=== PATIENT | female | born 1995 | race Caucasian/White ===

== ENCOUNTER → 2016-11-16 | Outpatient (CLI) | payer OTHER ==
[2016-11-16 11:28] LABS: PREG INTERNAL NEGATIVE QC NEG CLEAR BACKGROUND; PREG INTERNAL POSITIVE QC POS CONTROL LINE
== END | disposition home or self-care (01) ==
LOC: C.LAB1850 10:24
PROVIDERS: ATTEND Physician Assistant
DX: N92.6 Irregular menstruation, unspecified (principal)

== ENCOUNTER → 2017-04-02 | Outpatient (CLI) | payer OTHER | END | disposition home or self-care (01) | LOC: C.PAPS 13:16 | PROVIDERS: ATTEND Physician Assistant | DX: Z01.419 Encounter for gynecological examination (general) (routine) without abnormal findings (principal) ==

== ENCOUNTER 2023-04-16 03:09 | Inpatient (IN) ==
[2023-04-16] MEDS ORDERED: LIDOCAINE 1% LOCAL 20 ML VIAL INFIL PRN (06:14)
[2023-04-16] MEDS ORDERED: OXYTOCIN 30 UNITS/NSS 30 UNITS/500 ML BAG IV PRN ×3 (06:14→14:05)
--- NOTE | 2023-04-16 06:17 | History & Physical Report ---
Date of Service April 16, 2023 Assessment & Plan (1) COVID-19 affecting in third trimester: (2) with 39 completed weeks gestation: (3) Normal labor: Plan admit. fetus category one. COVID precautions. epidural on demand. pit if indicated. anticipate . History of Present Illness Chief Complaint: increasing contractions Primary Care Provider: NO PCP Ptient is a 27yowf with iup at 39 5/7 weeks who presents with increasing contractions. she presented yesterday with viral illness diagnosed as COVID. She was tanya every 2-3 minutes at that point but not really feeling, monitored and did not change her cervix. She was d/c. Called early am with contractions every 4 minutes and painful. Was 3 and then changed to 4cm so admitted. The has been uncomplicated until recent diagnosis of covid yesterday. Sx started Sat night including body aches, fatigue, low grade fever, slight congestion. OB Labs: Blood Type O Positive 09/07/22 Antibody Screen NEGATIVE 09/07/22 Hemoglobin 12.8 g/dl (12.0-16.0) 01/25/23 Hematocrit 37.3 % (37.0-47.0) 01/25/23 Mean Corpuscular Volume 91.5 fL (80.0-100.0) 09/07/22 Platelet Count 332 K/uL (130-400) 09/07/22 Rubella IgG Antibody Immune (Immune) 09/07/22 Rapid Plasma Reagin Nonreactive (Nonreactive) 09/07/22 Hepatitis B Surface Antigen. NON-REACTIVE (NON-REACTIVE) 09/07/22 Hepatitis C Antibody (EIA) NON-REACTIVE (NON-REACTIVE) 09/07/22 HIV (1&2) Ag and Ab Confirmation NON-REACTIVE (NON-REACTIVE) 09/07/22 Glucose 1 Hour 50 gm Load 75 mg/dl (70-130) 01/25/23 OB Optional Labs: Chlamydia trachomatis RNA Not Detected (NotDetected) 09/07/22 Neisseria gonorrhoeae RNA Not Detected (NotDetected) 09/07/22 Labs Reviewed: declines genetic testing--[facility] declines QS/afp--[facility] declines Horizon--[facility] Allergies Allergy/AdvReac Type Severity Reaction Status Date / Time No Known Allergies Allergy Verified 04/12/23 09:00 Home Medications Medication Instructions Recorded Confirmed Type vit no.95-ferrous 1 tab PO DAILY #30 tabs 08/11/22 04/16/23 Rx fumarate 28 mg-folic acid 800 mcg tablet Patient History Medical History with 39 completed weeks gestation History of chicken pox Surgical History No pertinent past surgical history Family History Aunt Breast cancer Denies family history of Ovarian cancer Colorectal cancer Social History Smoking Status: Never smoker Second Hand Exposure: No; Do You Dip or Chew Tobacco: No; Hx Alcohol Use: No Hx Substance Use: No Preferred Language: Maltese Communication Ability: Effective Wireless Development Manager Required: No Beliefs That Will Affect Care: None marital status: marital status details: Dallas Rogers (30) [phone] Current Living Situation: Spouse and Family Current Living Situation Comment: lives with spouse, 2 sons, dog, cat-spouse changing litter current occupational status: unemployed current occupation: homemaker Other Information That Helps Us Care for You: No Feels Safe at Home: Yes Safety Concerns: Feels Safe At This Time Diet: regular Assistive Devices: None OB History Past Pregnancies Del. Date GA wks Lbr Lgth wt Sex Type del Anes Place Del Prov ? Comment 03/21/19 40 20 8-9 M Epidu ral Other JASON Callahan induced LGA, 4th degree tear 04/30/20 40 3 9 M Epidura l Other JASON Carbajal [employer] History noncontributory Physical Exam Constitutional: WD/WN, vitals as above Gastrointestinal (Abdomen): soft, gravid, nt Psychiatric: A+Ox3, euthymic affect Genitourinary: cx--/-2 per nursing toco--q3-5min efm--130s with mod variability, accels to 160s, no decels Results & Data Vital Signs (Past 12 Hours) Vital Signs Temp Pulse Resp BP 04/16/23 03:32 106 H 128/81 04/16/23 03:25 37.0 C 18 Coding Level of Care Code None Diagnoses COVID-19 affecting in third trimester O98.513; U07.1 with 39 completed weeks gestation Z3A.39 Normal labor O80; Z37.9
[2023-04-16 07:06] LABS: Hematocrit (blood only) 41.7 % (37.0-47.0); Hemoglobin 14.1 g/dl (12.0-16.0); Mean Corpuscular Hemoglobin 30.9 pg (25.0-34.0); Mean Corpuscular Hgb Conc 33.8 g/dL (32.0-36.0); Mean Corpuscular Volume 91.2 fL (80.0-100.0); Mean Platelet Volume 11.4 fL (9.4-12.4); Platelet Count 214 K/uL (130-400); RDW Coefficient of Variation 13.7 % (11.5-14.5); RDW Standard Deviation 45.9 fL (36.4-46.3); Red Blood Count 4.57 M/uL (4.20-5.40); White Blood Count 9.01 K/ul (4.8-10.8)
[2023-04-16] MEDS: LACTATED RINGER'S 1,000 ML IV PRN ×3 (07:20→11:53)
[2023-04-16] MEDS ORDERED: ROPIVACAINE 0.5% PF 5 MG/ML 20 ML VIAL EPI PRN (07:26)
[2023-04-16] MEDS ORDERED: NALOXONE HCL 1 MG in SODIUM CHLORIDE 0.9% 1,000 ML IV PRN (07:26)
[2023-04-16] MEDS ORDERED: SODIUM CHLORIDE 0.9% PF INJ 10 ML VIAL EPI PRN (07:26)
[2023-04-16] MEDS ORDERED: NALBUPHINE HCL 5 MG in SYRINGE 0 ML IV PRN (07:26)
[2023-04-16] MEDS ORDERED: LIDOCAINE 2% MPF LOCAL 5 ML VIAL EPI PRN (07:26)
[2023-04-16] MEDS ORDERED: BUPIVACAINE 0.25% PF 30 ML VIAL EPI PRN (07:26)
[2023-04-16] MEDS ORDERED: fentaNYL citrate PF 100 MCG/2 ML VIAL EPI PRN (07:26)
[2023-04-16] MEDS ORDERED: fentANYL 2 MCG/ML BUPIVacaine 0.125%-NSS 100ML BAG EPI PRN (07:26)
[2023-04-16] MEDS ORDERED: BUPIVACAINE 0.25% PF 30 ML VIAL EPI STA (07:26)
[2023-04-16] MEDS ORDERED: SODIUM CHLORIDE 0.9% PF INJ 10 ML VIAL EPI STA (07:26)
[2023-04-16] MEDS ORDERED: LIDOCAINE 2%/EPINEPHRINE 1:200,000 20 ML PF EPI STA (07:26)
[2023-04-16] MEDS ORDERED: NALOXONE HCL 0.4 MG/1 ML VIAL/CARP IV PRN (07:26)
[2023-04-16] MEDS ORDERED: ONDANSETRON INJ 2 MG/ML 2 ML VIAL IV PRN (07:26)
[2023-04-16] MEDS ORDERED: diphenhydrAMINE 50 MG/ML VIAL IV PRN (07:26)
[2023-04-16] MEDS ORDERED: fentaNYL citrate PF 100 MCG/2 ML VIAL EPI STA (07:26)
--- NOTE | 2023-04-16 07:26 | Anesthesiology Consultation ---
Date of Service April 16, 2023 Assessment & Plan Chart Review Chart Review: Patient NOT seen in Pre Admission Testing and Acceptable Risk for Labor Epidural Consults Requested none ASA ASA2 Proposed Anesthesia Anesthesia Type: Labor Epidural Risk / Benefits Reviewed With: PT / POA / Parent / Guardian, Accepts Plan and Informed Consent Obtained History Height/Weight Height: 5 ft 9 in Weight: 105.687 kg Allergies Allergy/AdvReac Type Severity Reaction Status Date / Time No Known Allergies Allergy Verified 04/12/23 09:00 Medications Home Medications Medication Instructions Recorded Confirmed Last Taken vit no.95-ferrous 1 tab PO DAILY #30 tabs 08/11/22 04/16/23 04/14/23 fumarate 28 mg-folic acid 800 mcg tablet Past Medical History Medical History with 39 completed weeks gestation History of chicken pox Exercise / Class Metabolic Activity II 4-5 Yardwork/Stairs/Walk up hill Past Family History Family History Aunt Breast cancer Denies family history of Ovarian cancer Colorectal cancer Past Surgical History Surgical History No pertinent past surgical history Past Anesthesia History No Hx of Anesthesia Complications and No Family Hx of Anesthesia Complications History of PONV No Hx of PONV and No Hx of Motion Sickness Social History Smoking Status: Never smoker Do You Dip or Chew Tobacco: No Hx Alcohol Use: No Hx Substance Use: No substance use type: does not use Physical Exam Vital Signs Last Vital Signs Temp 37.0 C 04/16/23 03:25 Pulse 114 H 04/16/23 07:16 Resp 18 04/16/23 03:25 BP 121/89 04/16/23 07:16 ENMT Mouth: no dentition abnormality Thyromental Distance: > or= 3.5 Finger Breadths Mallampati Class: II Neck normal visual inspection Respiratory normal respiratory effort Auscultation: lungs clear to auscultation bilaterally Cardiovascular Rate/Rhythm: regular rate and regular rhythm Psychiatric Orientation: alert Testing Laboratory Results 04/16/23 06:36
[2023-04-16] MEDS ORDERED: fentANYL 2 MCG/ML BUPIVacaine 0.125%-NSS 100ML BAG ONE (07:27)
[2023-04-16] MEDS ORDERED: BUPIVACAINE 0.25% PF 30 ML VIAL ONE (07:27)
[2023-04-16] MEDS ORDERED: fentaNYL citrate PF 100 MCG/2 ML VIAL ONE (07:27)
[2023-04-16] MEDS ORDERED: ePHEDrine sulfate 50 MG/ML AMP ONE (07:27)
[2023-04-16] MEDS ORDERED: SODIUM CHLORIDE 0.9% PF INJ 10 ML VIAL ONE (07:27)
[2023-04-16] MEDS ORDERED: LIDOCAINE 2%/EPINEPHRINE 1:200,000 20 ML PF ONE (07:28)
[2023-04-16] MEDS: ePHEDrine sulfate 50 MG/ML AMP IV PRN ×3 (07:52→08:02)
[2023-04-16] MEDS ORDERED: PHENYLEPHRINE 100MCG/ML 5ML SYR IV ONE (08:58)
--- NOTE | 2023-04-16 09:38 | Labor Progress Brief Note ---
Date of Service April 16, 2023 Subjective comfortable w/ epidural, some pressure Assessment & Plan (1) COVID-19 affecting in third trimester: (2) with 39 completed weeks gestation: Plan 27 yo at 39 5/7 admitted in labor VSS Fetus cat 1 Labor - s/p arom, pit prn GBS neg epidural in place Admission and Anticipated Discharge Date Admission Date: April 16, 2023 Physical Exam Genitourinary: Manual OB Exam: + cervical dilation 4 cm, + cervical effacement 60%, + station -2 and + amniotic fluid (arom mec) OB Exam Monitor Tracing: + external FHT monitor used, + external uterine monitor used and + category I (150/mod/+accel/-decel) Results & Data Vital Signs (Past 12 Hours) Vital Signs Temp Pulse Resp BP Pulse Ox O2 Del Method 04/16/23 09:30 121 H 99 04/16/23 09:25 123 H 98 04/16/23 09:24 126 H 121/70 04/16/23 09:20 123 H 98 04/16/23 09:15 132 H 99 04/16/23 09:10 113 H 100 04/16/23 09:09 123 H 123/70 04/16/23 09:05 122 H 99 04/16/23 09:00 123 H 100 04/16/23 08:55 142 H 100 04/16/23 08:54 126 H 108/55 L 04/16/23 08:50 138 H 100 04/16/23 08:45 128 H 100 04/16/23 08:40 144 H 100 04/16/23 08:37 113 H 122/66 04/16/23 08:35 100 04/16/23 08:35 126 H 04/16/23 08:35 125 H 107/55 L 04/16/23 08:33 115 H 122/58 L 04/16/23 08:30 138 H 104/59 L 100 04/16/23 08:28 123 H 115/58 L 04/16/23 08:26 130 H 108/56 L 04/16/23 08:25 127 H 100 04/16/23 08:24 122 H 118/61 04/16/23 08:22 126 H 110/58 L 04/16/23 08:20 111 H 125/62 100 04/16/23 08:18 129 H 112/57 L 04/16/23 08:16 113 H 124/62 04/16/23 08:15 123 H 100 04/16/23 08:14 101 H 126/62 04/16/23 08:13 102 H 120/64 04/16/23 08:11 148 H 90/52 L 04/16/23 08:10 146 H 100 04/16/23 08:09 150 H 98/54 L 04/16/23 08:07 125 H 106/49 L 04/16/23 08:05 132 H 100 04/16/23 08:02 146 H 86/49 L 04/16/23 08:01 144 H 98/52 L 04/16/23 08:00 139 H 18 99 04/16/23 07:58 125 H 113/58 L 04/16/23 07:56 141 H 82/49 L 04/16/23 07:55 141 H 90/51 L 96 04/16/23 07:54 123 H 86/53 L 04/16/23 07:53 114 H 79/40 L 04/16/23 07:51 126 H 85/41 L 04/16/23 07:50 135 H 97 04/16/23 07:48 125 H 109/57 L 04/16/23 07:47 125 H 97/56 L 04/16/23 07:45 97 04/16/23 07:45 139 H 04/16/23 07:45 125 H 102/54 L 04/16/23 07:42 112 H 151/53 H 04/16/23 07:40 113 H 96 04/16/23 07:39 117 H 112/78 04/16/23 07:38 118 H 139/81 04/16/23 07:35 117 H 97 04/16/23 07:16 114 H 121/89 04/16/23 07:15 98.8 F 101 H 20 126/62 04/16/23 07:15 Room Air 04/16/23 03:32 106 H 128/81 04/16/23 03:25 98.6 F 18 Coding Level of Care Code None Diagnoses COVID-19 affecting in third trimester O98.513; U07.1 with 39 completed weeks gestation Z3A.39
--- NOTE | 2023-04-16 13:29 | Delivery Summary ---
Vaginal Delivery Summary Date of Service April 16, 2023 Vaginal Delivery Summary [facility] PREOPERATIVE DIAGNOSIS: 1. Single intrauterine at 39 5/7 wga 2. Labor 3. COVID+ POSTOPERATIVE DIAGNOSIS: 1. Single intrauterine at 39 5/7 wga 2. Labor 3. COVID+ 4. Delivered PROCEDURE: 1. Normal spontaneous vaginal delivery. SURGEON: Leonela Huang MD ANESTHESIA: Epidural. ESTIMATED BLOOD LOSS: 300 mL FLUIDS: Continuous LR. URINE OUTPUT: None. COMPLICATIONS: None. CONDITION: Stable. INDICATIONS: 27 yo at 39 5/7 wga presented earlier this morning w/ ctx increasing in frequency and intensity. She was 3cm and progressed to 4cm on arrival. She received an epidural for pain control and underwent AROM. Pitocin was started to help ctx that spaced out and she then quickly progressed to complete and desired to push. FINDINGS: A viable female infant, weight pending with Apgars of 8 and 9 at 1 and 5 minutes respectively. SPECIMEN: Cord blood OPERATIVE REPORT: The patient progressed to 10 cm, 100% effaced and +2 station, pushed over intact perineum with anesthesia to deliver a viable female , weight and Apgars as above. Head of delivered in ADA position. Tight nuchal cord noted but could not be reduced easily so delivered through. Body and shoulders were delivered without difficulty. was delivered to maternal abdomen and nursing staff. Delayed cord clamping was performed for 60 seconds. Cord was clamped and cut. Cord blood was obtained. Placenta delivered spontaneously intact with 3-vessel cord. IV oxytocin and fundal massage were given for excellent hemostasis. Vagina, cervix, perineum, and placenta were inspected. A hemostatic abrasion was noted at the introitus and did not need repaired. Sponge and needle counts correct x2. No sponges were left behind. Mother and stable in immediate period. [facility] Vaginal Delivery Charge Vaginal Delivery Codes: 19544 global code for the antepartum, delivery, and post- Delivery Type Details: [facility]
[2023-04-16] MEDS ORDERED: bisacodyL 10 MG SUPP PR PRN (14:05)
[2023-04-16] MEDS ORDERED: oxyCODONE/ACETAMINOPHEN 5mg/325mg TAB PO PRN (14:05)
[2023-04-16] MEDS ORDERED: HYDROCORTISONE ACETATE 25 MG SUPP PR PRN (14:05)
[2023-04-16] MEDS ORDERED: BENZOCAINE 20% SPRY 85 APPLN/85 GM CAN EXT PRN (14:05)
[2023-04-16] MEDS ORDERED: DIPHTHERIA/TETANUS/PERTUSSIS Vaccine (Tdap, Age 7+yrs) 0.5mL SYR/VL IM ONE (14:05)
[2023-04-16] MEDS ORDERED: ACETAMINOPHEN 325 MG TAB PO PRN (14:05)
[2023-04-16] MEDS: IBUPROFEN 600 MG TAB PO PRN (14:19)
--- NOTE | 2023-04-16 20:16 | Anesthesia Procedure Note ---
Date of Service April 16, 2023 Anesthesia Post Epidural Note Vital Signs Vital Signs: Temp Pulse Resp BP Pulse Ox O2 Del Method 36.6 C 105 H 18 127/83 97 Room Air 04/16/23 16:08 04/16/23 16:08 04/16/23 16:08 04/16/23 16:08 04/16/23 16:08 04/16/23 16:08 Pain Intensity Abdomen: Pain Intensity: 1 Notes Mental Status: alert / awake / arousable Nausea / Vomiting: adequately controlled Pain: adequately controlled Airway Patency, RR, SpO2: stable & adequate BP & HR: stable & adequate Hydration State: stable & adequate Neuraxial Anesthesia: was administered and sensory block is resolving Anesthetic Complications: no major complications apparent and Pt Satisfied with anesthetic care Epidural: Removed without complications and With tip intact
[2023-04-16] MEDS: DOCUSATE SODIUM 100 MG CAP PO SCH (23:12)
[2023-04-16] MEDS ORDERED: COUGH DROP (SUGAR FREE) LOZ 24 LOZ/1 BOX BUCCAL PRN (23:34)
[2023-04-17] MEDS: IBUPROFEN 600 MG TAB PO PRN ×2 (02:56→09:02)
[2023-04-17 06:25] LABS: Hemoglobin 12.7 g/dl (12.0-16.0); Mean Corpuscular Hemoglobin 31.1 pg (25.0-34.0); Mean Corpuscular Hgb Conc 33.4 g/dL (32.0-36.0); Mean Corpuscular Volume 93.1 fL (80.0-100.0); Mean Platelet Volume 11.6 fL (9.4-12.4); Platelet Count 193 K/uL (130-400); RDW Coefficient of Variation 13.9 % (11.5-14.5); RDW Standard Deviation 47.3 fL (36.4-46.3); Red Blood Count 4.08 M/uL (4.20-5.40); White Blood Count 7.61 K/ul (4.8-10.8)
--- NOTE | 2023-04-17 06:25 | Obstetrical Progress Note ---
Date of Service April 17, 2023 Assessment & Plan (1) care following vaginal delivery: Plan Doing well COVID +, asymptomatic Encourage ambulation Pain control Discharge today Admission and Anticipated Discharge Date Admission Date: April 16, 2023 Supervising Physician Co-Signing Physician Notes Resident Physician Supervision Note: I interviewed and examined the patient. Discussed with Dr. Grande and agree with findings and plan as documented in the note. Any exceptions or clarifications are listed here: PP1 s/p , doing well. VSS, exam benign and wnl. Desires dc home, ok to do so Documented By: Leonela Huang MD Subjective 27 yo post day 1 s/p Ambulation: ambulating normally Voiding: no voiding problems Passing Gas:: Yes Diet Tolerance:: regular diet Lochia:: Small Feeding Type:: breast feeding Current Pain Level: minimal Resting comfortably this AM in NAD. Denies DEWITT, CP, SOB, N/V/D, LE pain/swelling. Desires discharge today Review of Systems Review of Systems: reviewed, per HPI Physical Exam Physical Exam: General: patient resting comfortably, NAD, non-toxic in appearance, answers questions appropriately. Skin: warm, dry, intact HEENT: NC/AT, anicteric sclera, conjunctiva without injection, moist mucus membranes. Heart: +S1/S2, regular, no m/r/g Lungs: equal air entry bilaterally, no rales/rhonchi/wheezes Abd: +BS, soft, NT/ND, uterine fundus firm at umbilicus Ext: warm, no clubbing/cyanosis or edema, Vicente's neg. Neuro: speech intact, no facial droop, moving all extremities on command. Results & Data Vital Signs (Past 12 Hours) Vital Signs Temp Pulse Resp BP Pulse Ox O2 Del Method 04/17/23 03:50 36.7 C 82 16 109/63 97 Room Air 04/16/23 23:20 36.7 C 97 H 18 118/79 97 Room Air 04/16/23 20:10 Room Air 04/16/23 20:10 36.7 C 96 H 18 120/80 97 Room Air Resident Activity Tracking Resident Involvement: Resident Care Provided Care Provided: Adult [facility] Medicine
[2023-04-17] MEDS ORDERED: PRENATAL VITAMIN 1 TAB PO SCH (08:00)
[2023-04-17] MEDS: DOCUSATE SODIUM 100 MG CAP PO SCH (09:02)
[2023-04-17] MEDS ORDERED: bisacodyL 5 MG TABEC PO SCH (20:00)
== END 2023-04-17 13:45 | disposition home or self-care (01) | DRG 805 ==
LOC: OPB 03:09 → 4S1 03:11 → 4E1 15:45